=== PATIENT | female | born 1995 | race Caucasian/White ===

== ENCOUNTER 2018-05-03 21:31 | Emergency (ER) | payer OTHER ==
[2018-05-03 21:40] VITALS: BP 135/88
[2018-05-03 21:49] LABS: BILIRUBIN,URINE NEGATIVE (NEGATIVE); GLUCOSE, URINE (UA) NEGATIVE (NEGATIVE); KETONES,URINE (UA) NEGATIVE (NEGATIVE); LEUKOCYTE ESTERASE, URINE NEGATIVE (NEGATIVE); NITRITE,URINE NEGATIVE (NEGATIVE); OCCULT BLOOD,URINE LARGE (NEGATIVE); PROTEIN,URINE NEGATIVE (NEGATIVE); UROBILINOGEN,URINE 0.2 (NORMAL) E.U./dL (NORMAL)
--- NOTE | 2018-05-03 21:52 | ED Physician Documentation ---
PD HPI FEMALE - Stated complaint Stated Complaint: FEM - Chief complaint Chief Complaint: Abd Pain - History obtained from History obtained from: Patient - History of Present Illness Timing - onset: How many months ago (1) Timing - details: Gradual onset, Intermittant, Waxing and waning Pain level max: 0 Associated symptoms: Vaginal bleeding, Hematuria. No: Fever Similar symptoms before: Diagnosis (similar to previous UTIs) Recently seen: Clinic - Additional information Additional information: patient c/o 1 month of intermittent hematuria and vaginal bleeding. recently completed macrobid (approximately 3 weeks ago), with improvement, but symptoms returned. she has had right flank pain earlier in the month with the bleeding, but that has resolved. her chief concern is she has had only hematuria in the past as manifestation of both UTI abnd kidney infection (per patient), and she is travelling out of the country tomorrow. Review of Systems Constitutional: reports: Reviewed and negative GI: reports: Reviewed and negative : reports: Hematuria, Vaginal bleeding. denies: Dysuria, Frequency, Now EGA Musculoskeletal: denies: Back pain PD PAST MEDICAL HISTORY - Past Medical History Past Medical History: Yes Cardiovascular: None Respiratory: None Neuro: None Endocrine/Autoimmune: None GI: None [employer]: Other : None HEENT: None Psych: None Musculoskeletal: None Derm: None Other Past Medical History: PCOS....TORSION R FALLOPIAN TUBE... - Past Surgical History Past Surgical History: Yes General: Other - Present Medications Home Medications: Ambulatory Orders Medication Instructions Recorded Confirmed Ciprofloxacin HCl [Cipro] 500 mg PO BID #9 tablet 05/03/18 - Allergies Allergies/Adverse Reactions: Allergies Allergy/AdvReac Type Severity Reaction Status Date / Time No Known Drug Allergies Allergy Verified 05/03/18 21:39 - Social History Does the pt smoke?: No Smoking Status: Never smoker Does the pt drink ETOH?: Yes Does the pt have substance abuse?: No - Immunizations Immunizations are current?: Yes - POLST Patient has POLST: No PD ED PE NORMAL - Vitals Vital signs reviewed: Yes - General General: Alert and oriented X 3, No acute distress, Well developed/nourished - Abdomen Abdomen: Soft, Non tender - Back Back: No CVA TTP Results - Vitals Vitals: Vital Signs - 24 hr 05/03/18 05/03/18 21:37 22:50 Temperature 36.8 C Heart Rate 86 Respiratory 17 17 Rate Blood Pressure 135/88 H O2 Saturation 99 Oxygen O2 Source Room air - Labs Labs: Laboratory Tests 05/03/18 21:35 Urine Color YELLOW Urine Clarity CLEAR Urine pH 6.0 Ur Specific [place] 1.025 Urine Protein NEGATIVE Urine Glucose (UA) NEGATIVE Urine Ketones NEGATIVE Urine Occult Blood LARGE H Urine Nitrite NEGATIVE Urine Bilirubin NEGATIVE Urine Urobilinogen 0.2 (NORMAL) Ur Leukocyte Esterase NEGATIVE Urine RBC 6-10 H Urine WBC 0-3 Ur Squamous Epith Cells RARE Squamous Urine Bacteria Few Urine Mucus Moderate Strands Ur Microscopic Review INDICATED Urine Culture Comments NOT INDICATED Urine HCG, Qual NEGATIVE PD MEDICAL DECISION MAKING - ED course Complexity details: reviewed results, re-evaluated patient, considered differential, d/w patient ED course: UA results are not strongly s/o UTI; bacteria noted, although this could be contaminant, given sq. cells in sample. given patints description of similar symptoms heralding previous UTIs, and her travel plans tomorrow, it is reasonable to provide abx. coverage for possible UTI - Sepsis Event Vital Signs: Vital Signs - 24 hr 05/03/18 05/03/18 21:37 22:50 Temperature 36.8 C Heart Rate 86 Respiratory 17 17 Rate Blood Pressure 135/88 H O2 Saturation 99 Oxygen O2 Source Room air Departure - Departure Disposition: 01 Home, Self Care Clinical Impression: Hematuria Condition: Good Instructions: ED Hematuria Follow-Up: CAPRI Feliz [Provider Group] - Within 1 week Prescriptions: Ciprofloxacin HCl [Cipro] 500 mg PO BID #9 tablet Discharge Date/Time: 05/03/18 22:50
[2018-05-03 21:53] LABS: CLARITY,URINE CLEAR (CLEAR); HCG UR QUAL NEGATIVE
[2018-05-03 21:55] LABS: BACTERIA,URINE Few /HPF (None Seen); SQUAMOUS EPITHELIAL CELL,UR RARE Squamous (<= Few)
[2018-05-03 21:56] LABS: MUCUS,URINE Moderate Strands
[2018-05-03] MEDS ORDERED: CIPROFLOXACIN 250 MG TABLET PO STA (22:33)
== END 2018-05-03 22:50 | disposition home or self-care (01) ==
LOC: ED 21:31
DX: R31.9 Hematuria, unspecified (principal)
CPT/HCPCS: 81001; 81025; 99283; A9270; 81003; 87086